=== PATIENT | male | born 1955 | race Caucasian/White ===

== ENCOUNTER 2019-12-31 08:38 | Outpatient (CLI) | payer OTHER ==
--- NOTE | 2019-12-31 09:02 | RAD ---
EXAM: 3 views of the right ankle HISTORY: Ankle pain and arthritis COMPARISON: None FINDINGS: 3 views of the right ankle shows no evidence of acute fracture or dislocation. No soft tiss ue swelling is seen. Moderate degenerative changes are seen in the ankle joint with joint space narrowing and osteophyte formation. A small ossific fragment is seen adjacent to the tip of the later al malleolus which likely represent sequelae from remote trauma. A plantar calcaneal enthesophyte is incidentally seen. IMPRESSION: Moderate right ankle osteoarthritis
== END 2019-12-31 08:39 | disposition home or self-care (01) ==
LOC: BICRAD 08:38
PROVIDERS: ATTEND Orthopaedic Surgery
DX: M19.071 Primary osteoarthritis, right ankle and foot (principal)